=== PATIENT | female | born 1980 | race Caucasian/White ===

== ENCOUNTER 2018-10-06 15:53 | Inpatient (IN) | payer OTHER ==
[~2018-10-06] VITALS: Ht 170.2 cm; Wt 87.0 kg
[~2018-10-06 15:53] MED LIST: HYDR-3498 PO; IBUP-1542 PO
[2018-10-06] MEDS ORDERED: morphine 4 MG/ML VIAL IV STA (16:43)
[2018-10-06] MEDS ORDERED: ONDANSETRON 4 MG INJ IV STA ×2 (16:43→20:44)
[2018-10-06] MEDS ORDERED: ACETAMINOPHEN 325 MG TAB PO STA (16:43)
[2018-10-06] MEDS ORDERED: SODIUM CHLORIDE 0.9% 1L BAG IV* STA (16:43)
[2018-10-06] MEDS ORDERED: CEFTRIAXONE 1 GM/50 ML (PMX) 50 ML IVPB ONE (17:30)
--- NOTE | 2018-10-06 17:35 | ERD ---
ER Documentation Chief Complaint Chief Complaint FEVER WITH AP X 3 DAYS HPI This is a 38-year-old female that presents to the emergency department complaining of abdominal pain. The patient indicates that the abdominal pain has been intermittent for 3 days but progressively worsened. The patient states that the pain began around her bellybutton but has now radiated to the right lower quadrant. She states that the pain is a sharp shooting pain. The pain is 8 out of 10 in intensity. She had a tactile fever with shaking and chills. She is felt nauseous and has not experienced any. She did eat breakfast this morning roughly 10 hours prior to arrival but states her appetite has been decreased. She denies a headache or neck pain. He has no shortness of breath at rest or exertion. She denies any chest pain or pressure. She denies a productive or nonproductive cough. ROS All systems reviewed and are negative except as per history of present illness. Medications Home Meds Discontinued Scripts Hydrocodone Bit-Acetaminophen* ([place]*) 5-325 Mg Tab, 1 TAB PO Q6 PRN for PAIN, #7 TAB Prov:BORJA,TRAVIS I. DRESSER TENDER 07/24/15 Ibuprofen* (Motrin*) 600 Mg Tab, 600 MG PO Q6, #20 TAB Prov:BORJA,TRAVIS I. DRESSER TENDER 07/24/15 Allergies Allergies: Coded Allergies: No Known Allergy (Verified , 10/06/18) PMhx/Soc History of Surgery: Yes (c/s x1) Anesthesia Reaction: No Hx Neurological Disorder: No Hx Respiratory Disorders: No Hx Cardiac Disorders: No Hx Psychiatric Problems: No Hx Miscellaneous Medical Probl: Yes (kidney stones, ovarian cyst) Hx Alcohol Use: No Hx Substance Use: No Hx Tobacco Use: No Smoking Status: Never smoker Physical Exam Vitals Vital Signs Date Temp Pulse Resp B/P (MAP) Pulse Ox O2 O2 Flow FiO2 Time Delivery Rate 10/06/18 98.0 90 18 117/57 100 Room Air 20:28 (77) 10/06/18 98.8 97 20 134/62 100 Room Air 17:18 (86) 10/06/18 102.0 105 20 147/66 97 16:35 (93) Physical Exam Constitutional:Well-developed. Well-nourished. HEENT:Normocephalic. Atraumatic.Pupils were equal round reactive to light. Moist mucous membranes.No tonsillar exudates. Neck: No nuchal rigidity. No lymphadenopathy. No posterior cervical spine tenderness or step-offs. Respiratory: Not using accessory muscles of respiration.Lungs were clear to auscultation bilaterally. No rhonchi. No rales. No wheezing. Cardiovascular: Regular rate regular rhythm.No murmurs. No rubs were appreciated.S1, S2 normal. Distal pulses are palpable 2+ bilaterally. GI: Abdomen was soft. Right lower quadrant tenderness. Psoas sign negative obturator sign negative. Non Distended. No pulsatile abdominal masses or bruits. No rebound. No guarding. Bowel sounds were present and normal. : Pelvic exam was performed by myself and the patient denied a female nurse happened to be present. There is no endocervical discharge. There is no cervical motion tenderness. Left adnexa appeared grossly normal. There is right adnexal tenderness and fullness. No gross blood present within the vaginal vault. No endocervical discharge. Muscle skeletal: Full range of motion of both the upper and lower extremities bilaterally.Normal muscle tone.No assymetrical calf tenderness or swelling. Skin: No petechia, no purpura. No lesions on the palms or the soles of the feet. No maculopapular rash. NEURO: Patient was alert, awake, orientated x3.No facial droop. Gait observed and normal with no ataxia.Speech had regular rate and rhythm. No focal neurological deficits. Result Diagram: 10/06/18 1653 10/06/18 1653 Results 24 hrs Laboratory Tests Test 10/06/18 16:53 10/06/18 17:01 10/06/18 17:12 10/06/18 19:55 White Blood Count 16.2 10^3/ul Red Blood Count 4.55 10^6/ul Hemoglobin 10.9 g/dl Hematocrit 34.6 % Mean Corpuscular 76.0 fl Volume Mean Corpuscular 24.0 pg Hemoglobin Mean Corpuscular 31.5 g/dl Hemoglobin Concent Red Cell 15.9 % Distribution Width Platelet Count 267 10^3/UL Mean Platelet 11.3 fl Volume Immature 0.600 % Granulocytes % Neutrophils % 77.6 % Lymphocytes % 14.5 % Monocytes % 6.7 % Eosinophils % 0.2 % Basophils % 0.4 % Nucleated Red 0.0 /100WBC Blood Cells % Immature 0.100 10^3/ul Granulocytes # Neutrophils # 12.5 10^3/ul Lymphocytes # 2.3 10^3/ul Monocytes # 1.1 10^3/ul Eosinophils # 0.0 10^3/ul Basophils # 0.1 10^3/ul Nucleated Red 0.0 10^3/ul Blood Cells # Prothrombin Time 12.6 Sec Prothrombin Time 1.0 Ratio INR International 0.93 Normalized Ratio Activated 31.[address] Time Urine Color STRAW Urine Clarity CLEAR Urine pH 7.0 Urine Specific 1.008 [place] Urine Ketones NEGATIVE mg/dL Urine Nitrite NEGATIVE mg/dL Urine Bilirubin NEGATIVE mg/dL Urine Urobilinogen NEGATIVE mg/dL Urine Leukocyte NEGATIVE Imelda/ul Esterase Urine Microscopic 3 /HPF RBC Urine Microscopic 2 /HPF WBC Urine Squamous FEW /HPF Epithelial Cells Urine Bacteria FEW /HPF Urine Hemoglobin 2+ mg/dL Urine Glucose NEGATIVE mg/dL Urine Total NEGATIVE mg/dl Protein Sodium Level 140 mmol/L Potassium Level 3.6 mmol/L Chloride Level 104 mmol/L Carbon Dioxide 24 mmol/L Level Anion Gap 12 Blood Urea 5 mg/dl Nitrogen Creatinine 0.49 mg/dl Est Glomerular > 60 mL/min Filtrat Rate mL/min Glucose Level 107 mg/dl Calcium Level 9.3 mg/dl Total Bilirubin 0.3 mg/dl Direct Bilirubin 0.00 mg/dl Indirect Bilirubin 0.3 mg/dl Aspartate Amino 15 IU/L Transf (AST/SGOT) Alanine 25 IU/L Aminotransferase ( ALT/SGPT) Alkaline 98 IU/L Phosphatase Troponin I < 0.012 ng/ml Total Protein 8.1 g/dl Albumin 4.5 g/dl Globulin 3.60 g/dl Albumin/Globulin 1.25 Ratio Amylase Level 67 U/L Lipase 77 U/L POC Beta HCG, NEGATIVE Qualitative POC Venous Lactate 1.1 mmol/L 1.0 mmol/L Current Medications Medications Dose Sig/[place] Start Time Status Last (Trade) Ordered Route PRN Stop Time Admin Dose Reason Admin Sodium 2,580 ml BOLUS OVER 2 10/06/18 DC 10/06/18 Chloride HOURS STAT 16:43 17:08 (NS) IV* 10/06/18 16:45 650 mg ONCE STAT 10/06/18 DC 10/06/18 Acetaminophen PO 16:43 17:08 (Tylenol 3/17/19 16:45 Tab) Morphine 4 mg ONCE STAT 10/06/18 DC 10/06/18 Sulfate IV 16:43 17:08 (morphine) 10/06/18 16:45 Ondansetron 4 mg ONCE STAT 10/06/18 DC 10/06/18 HCl (Zofran IV 16:43 17:08 Inj) 10/06/18 16:45 Ceftriaxone 50 ml @ ONCE ONCE 10/06/18 DC 10/06/18 Sodium 100 mls/hr IVPB 17:30 17:29 10/06/18 17:59 IV Flush 10 ml STK-MED 10/06/18 DC (NS 10 ml) ONCE .ROUTE 17:51 10/06/18 17:52 Sodium 100 ml @ ud STK-MED 10/06/18 DC Chloride ONCE .ROUTE 17:51 10/06/18 17:52 Iohexol 150 ml STK-MED 10/06/18 DC (Omnipaque ONCE .ROUTE 17:51 300mg/ ml) 10/06/18 17:52 1 mg ONCE STAT 10/06/18 DC 10/06/18 Hydromorphone IV 20:44 20:49 HCl 10/06/18 20:45 (Dilaudid) Ondansetron 4 mg ONCE STAT 10/06/18 DC 10/06/18 HCl (Zofran IV 20:44 20:49 Inj) 10/06/18 20:45 Ketorolac 30 mg ONCE STAT 10/06/18 DC 10/06/18 Tromethamine IV 20:44 20:49 (Toradol) 10/06/18 20:45 Piperacillin 100 ml @ ONCE ONCE 10/06/18 Sod/ 200 mls/hr IVPB 22:00 Tazobactam 10/06/18 22:29 Sod Vancomycin 250 ml @ ONCE ONCE 10/06/18 HCl 125 mls/hr IVPB 22:00 10/06/18 23:59 Procedures/MDM This patient presented to the emergency department with abdominal pain and was seen and evaluated by myself. My differential diagnosis included but was not limited to abdominal aortic aneurysm, appendicitis, pancreatitis, perforated peptic ulcer, perforated viscus, Boerhaaves syndrome or visceral pain such as diverticulitis, DKA, esophagitis, hepatitis or bowel obstruction. The patient was placed on a case monitor, continuous pulse oximetry, and IV access was established by nursing staff. The patient did have Sirs criteria but lactic acid was within normal limits. The patient did receive 30 cc/kg bolus of normal saline intravenous morphine and Zofran for analgesic control. The patient was febrile with a temperature of 102 and received antipyretics pain acetaminophen and Motrin. 12 Lead EKG tracing ordered and reviewed by myself showed: Normal sinus rhythm of 96 bpm and no arrhythmia. WI interval normal. QRS duration normal. No ST segment elevation No ST segment depression. No changes consistent with acute ischemia. CT scan of the abdomen reviewed by myself as well as the radiologist indicate the followin. Right adnexal 2.4 cm peripherally enhancing fluid collection with mild adjacent fat stranding and trace dependent right pelvic free fluid, possibly ref lecting ruptured corpus luteum cyst or small tubo-ovarian abscess. This sits in somewhat close proximity to a loop of sigmoid colon, and focal sigmoid diverticulitis is not entirely excluded, but is thought unlikely in the absence of identifiable diverticulosis or bowel wall thickening. Clinical correlation and further evaluation with pelvic ultrasound recommended. 2. The bowel is unobstructed without evidence of perforation, and the appendix appears normal. 3. Stable 1.4 cm right adrenal fatty adenoma, better characterized on prior unenhanced exam. At this time I did feel is necessary to perform a pelvic ultrasound as the pelvic examination was concerning for possible tubo-ovarian abscess. Ultrasound of the pelvis reviewed by the radiologist indicated a followin. Hydrosalpinx of the right fallopian tube without significant increased Doppler flow to suggest pyosalpinx at this time. 2. 1.6 cm left ovarian cyst. 3. Normal sonographic findings of the uterus. The patient will be admitted in serious condition under the INSTRUMENT SPECIALIST Dr. Brar. The patient will go to the medical surgical floor. Critical Care: Time: 55 minutes Treatments/Evaluations: Close monitoring and treatment of unstable vital signs, cardiorespiratory, and neurologic status, while maintaining tight balance of fluid, respiratory, and cardiac interventions. Time does not include performing any of the above billable procedures. Departure Diagnosis: Primary Impression: Tubo-ovarian abscess Condition: Serious LETITIA RIVER MD Oct 06, 2018 17:35
[2018-10-06] MEDS ORDERED: SOD CHLORIDE 0.9% 100 ML ONE (17:51)
[2018-10-06] MEDS ORDERED: IOHEXOL 300MG/ML 150 ML BTL ONE (17:51)
[2018-10-06] MEDS ORDERED: HYDROmorphONE 1 MG/ML SYG IV STA (20:44)
[2018-10-06] MEDS ORDERED: KETOROLAC 30 MG INJ IV STA (20:44)
[2018-10-06] MEDS ORDERED: PIPER-TAZO 3.375 GM IV (PMX) 100 ML IVPB ONE (22:00)
[2018-10-06] MEDS ORDERED: VANCOMYCIN 1 GM (PMX) 250 ML IVPB ONE (22:00)
[2018-10-06] MEDS ORDERED: ONDANSETRON 4 MG INJ IV PRN (22:00)
[2018-10-07 00:40] VITALS: BP 113/56; PULSE 80; RESP 18
[2018-10-07 00:42] VITALS: Ht 170.2 cm; Wt 87.0 kg
[2018-10-07] MEDS ORDERED: GENTAMICIN IV PER PHARMACY XX SCH (02:00)
[2018-10-07] MEDS ORDERED: ONDANSETRON 4 MG INJ IV PRN (02:00)
[2018-10-07 02:32] VITALS: BP 116/61; PULSE 83; RESP 18
[2018-10-07] MEDS: SOD CHLORIDE 0.9% 1,000 ML IV SCH ×3 (03:14→15:58)
[2018-10-07] MEDS ORDERED: GENTAMICIN 120 MG/NS (PMX) 100 ML IVPB SCH (05:00)
[2018-10-07] MEDS: CLINDAMYCIN 900 MG/D5W (PMX) 50 ML IVPB SCH ×3 (06:02→22:06)
[2018-10-07] MEDS: AMPICILLIN 2 GM/NS (PMX) 100 ML IVPB SCH ×3 (07:08→18:57)
--- NOTE | 2018-10-07 08:06 | HP ---
DATE OF ADMISSION: 10/06/2018 HISTORY OF PRESENT ILLNESS: A 38-year-old female 5, para 3, AB 2, last menstrual period 08/2018, presented to the emergency department with a 2-day history of right lower quadrant pain. The patient complains of slight nausea, denies any vomiting and denies any change in bowel habits. PAST MEDICAL HISTORY: Unremarkable. PAST SURGICAL HISTORY: section x3 and bilateral tubal ligation. ALLERGIES: NO KNOWN ALLERGIES. FAMILY HISTORY: Noncontributory. PHYSICAL EXAMINATION: VITAL SIGNS: The patient is afebrile. Vital signs are stable. HEAD, NECK AND CHEST: Within normal limits. ABDOMEN: Soft, nontender and nondistended. PELVIC: There is cervical motion tenderness. There is bilateral adnexal tenderness. EXTREMITIES: Within normal limits. NEUROLOGIC: Within normal limits. Workup in the emergency department included a CT scan of abdomen and pelvis, which revealed an adnexa l mass suspicious for tuboovarian abscess measuring less than 2 cm. A pelvic ultrasound revealed a h ydrosalpinx on the right side. The patient had temperature of 102 in the emergency department and be came afebrile subsequently. IMPRESSION: Pelvic inflammatory disease, rule out tuboovarian abscess. PLAN: Plan is to admit her with blood culture and urine culture. The patient was given a dose of Zo syn and vancomycin in the emergency department by the emergency physician. Plan is to give intraveno us ampicillin, gentamicin and clindamycin. Dictated By: KLARISSA FORREST MD GD/NTS Conf#: [id number] DID#: [id number] CC: KLARISSA FORREST MD;*EndCC*
[2018-10-07 08:10] VITALS: BP 122/59; PULSE 94; RESP 16
[2018-10-07] MEDS: ACETAMINOPHEN 325 MG TAB PO PRN ×2 (09:53→15:57)
[2018-10-07 14:00] VITALS: BP_SYST 122; BP_SYST 90; BP_DIAS 55; BP_DIAS 58; PULSE 102; PULSE 89; RESP 17; RESP 18
[2018-10-07 20:20] VITALS: BP 138/67; PULSE 101; RESP 18
[2018-10-07] MEDS: GENTAMICIN 350 MG in SOD CHLORIDE 0.9% 100 ML IVPB SCH (20:38)
[2018-10-08] MEDS: AMPICILLIN 2 GM/NS (PMX) 100 ML IVPB SCH ×4 (00:43→17:42)
[2018-10-08 02:43] VITALS: BP 109/58; PULSE 76; RESP 18
[2018-10-08] MEDS: SOD CHLORIDE 0.9% 1,000 ML IV SCH ×3 (04:36→14:34)
[2018-10-08] MEDS: ACETAMINOPHEN 325 MG TAB PO PRN ×2 (04:37→17:45)
[2018-10-08] MEDS: CLINDAMYCIN 900 MG/D5W (PMX) 50 ML IVPB SCH ×3 (06:12→21:59)
[2018-10-08 08:00] VITALS: BP_SYST 106; BP_SYST 111; BP_DIAS 53; BP_DIAS 76; PULSE 84; PULSE 88; RESP 20
[2018-10-08 14:00] VITALS: BP 131/55; PULSE 72; RESP 18
--- NOTE | 2018-10-08 17:06 | QN ---
Documentation Comment UTI,No pain ,No fever since last night VS stable Gen NAD Abd soft NT ND Genitalia No blood at perineum --->Possible discharge tomorrow on Po Antibiotics KRISTAN DWYER M.D. Oct 08, 2018 17:06
[2018-10-08 20:00] VITALS: BP 120/55; PULSE 84; RESP 19
[2018-10-08] MEDS: GENTAMICIN 350 MG in SOD CHLORIDE 0.9% 100 ML IVPB SCH (20:52)
[2018-10-09] MEDS: AMPICILLIN 2 GM/NS (PMX) 100 ML IVPB SCH ×4 (00:12→18:00)
[2018-10-09] MEDS: SOD CHLORIDE 0.9% 1,000 ML IV SCH ×4 (02:00→18:00)
[2018-10-09 02:16] VITALS: BP 116/55; PULSE 82; RESP 19
[2018-10-09] MEDS: CLINDAMYCIN 900 MG/D5W (PMX) 50 ML IVPB SCH ×2 (05:17→14:06)
[2018-10-09] MEDS: ACETAMINOPHEN 325 MG TAB PO PRN (05:23)
[2018-10-09 08:18] VITALS: BP 114/60; PULSE 72; RESP 18
[2018-10-09 14:36] VITALS: BP 111/55; PULSE 85; RESP 18
--- NOTE | 2018-10-09 17:09 | PN ---
Date/Time of Note Date/Time of Note DATE: 10/09/18 TIME: 17:03 OB Subjective Subjective Subjective Patient seen and examined. She denies nausea, vomiting, shortness of breath, chest pain, headache, abdominal pain. She has been ambulating without difficulty, tolerating regular diet. OB Objective Objective Objective Vital Signs Date Temp Pulse Resp B/P (MAP) Pulse Ox O2 O2 Flow FiO2 Time Delivery Rate 10/09/18 98.6 85 18 111/55 100 Room Air 14:36 (73) General: AAO X 3, comfortable, NAD, appropriate mood and affect. ABD: +BS. Soft, non-tender. Flank: No CVA tenderness (B/L) LE: Mild edema. No clubbing, cyanosis, thigh or calf tenderness (B/L). Homans 'sign is negative OB Assessment/Plan Other plan: 38-year-old with abdominal pain and fever. CT scan abdomen and pelvis performed, possible 2 cm tubo-ovarian abscess. ultrasound revealed hydrosalpinx with no pyosalpinx. She declined urinary symptoms. Blood culture performed which was negative. Urine culture with E. coli more than 100,000. She is on ampicillin and gentamicin more than 48 hours. She is currently doing well and has no further symptoms. She would like to be discharged home. Macrobid 100 mg every 12 hours for 7 days given. Due to possible tubo-ovarian abscess that doxycycline admit metronidazole for another 7 days given. I strongly recommend follow-up with her primary OB. She expressed understanding. All of her questions answered. She discharged home in stable condition with follow-up with her primary OB. HIV and RPR performed which was negative. Chlamydia and gonorrhea test will be ready next 2 days. I discussed with patient need to ask her primary orbitread operator get the results from the hospital. Copy of all labs, CT scan and pelvic ultrasound for follow-up with her primary orbitread operator given. HALEY REDDY Oct 09, 2018 17:09
--- NOTE | 2018-10-09 17:12 | DS ---
Date/Time of Note Date/Time of Note DATE: 10/09/18 TIME: 17:09 Discharge Summary Admission/Discharge Info Admit Date/Time Oct 06, 2018 at 21:54 Discharge Date/Time 10/09/2018 Discharge Diagnosis 1. Urinary tract infection 2. Questionable tubo-ovarian abscess Patient Condition: Stable Procedures Ultrasound and CT scan Hx of Present Illness Please see H&P for detailed Hospital Course 38-year-old with abdominal pain and fever. CT scan abdomen and pelvis performed, possible 2 cm tubo-ovarian abscess. ultrasound revealed hydrosalpinx with no pyosalpinx. She declined urinary symptoms. Blood culture performed which was negative. Urine culture with E. coli more than 100,000. She is on ampicillin and gentamicin more than 48 hours. She is currently doing well and has no further symptoms. She would like to be discharged home. Macrobid 100 mg every 12 hours for 7 days given. Due to questionable tubo-ovarian abscess that doxycycline admit metronidazole for another 7 days given. I strongly recommend follow-up with her primary OB. She expressed understanding. All of her questions answered. She discharged home in stable condition with follow-up with her primary OB. HIV and RPR performed which was negative. Copy of all labs, CT scan and pelvic ultrasound for follow-up with her primary safety counselor given. Home Meds Discontinued Scripts Hydrocodone Bit-Acetaminophen* ([place]*) 5-325 Mg Tab, 1 TAB PO Q6 PRN for PAIN, #7 TAB Prov:BORJA,TRAVIS I. FEED ADVISER 07/24/15 Ibuprofen* (Motrin*) 600 Mg Tab, 600 MG PO Q6, #20 TAB Prov:BORJATRAVIS I. FEED ADVISER 07/24/15 Primary Care Provider Not On Staff Doctor Time spent on discharge: > 30 minutes Pending Labs Chlamydia and gonorrhea Aptima testing result HALEY REDDY Oct 09, 2018 17:12
== END 2018-10-09 18:50 | disposition home or self-care (01) | DRG 758 ==
LOC: E/R 15:53 → PP2 21:54
PROVIDERS: ADMIT Obstetrics & Gynecology; ATTEND Obstetrics & Gynecology
DX: N73.9 Female pelvic inflammatory disease, unspecified (principal); N39.0 Urinary tract infection, site not specified; N70.93 Salpingitis and oophoritis, unspecified; N83.202 Unspecified ovarian cyst, left side
CPT/HCPCS: 36415; 71045; 74177; 76830; 76856; 80053; 80170; 81001; 81025; 82150; 82565; 83605; 83690; 84484; 84520; 85025; 85610; 85730; 86592; 86703; 87040; 87086; 87400; 87591; 93005; 96365; 96366; 96375; 96376; J0290; J0696; J1170; J1580; J1885; J2270; J2405; J2543; J3370; J7030; Q9967